=== PATIENT | male | born 1980 | race Caucasian/White ===

== ENCOUNTER 2016-08-22 11:01 | Inpatient (IN) | payer OTHER ==
[~2016-08-22] VITALS: Ht 182.9 cm; Wt 83.9 kg
--- NOTE | 2016-08-22 11:28 | NUR ---
TRIAGE: PT SENT TO ER BY [facility] FOR EVAL OF URI S/S X 1 WK WITH R/A SATS REPORTED TO BE 92%. PT REPORTS PRODUCTIVE COUGH WITH GREENISH PHLEGM. HIGHEST TEMP REPORTED TO BE 104. AFEBRILE AT TRIAGE. R/A SATS 91% AT TRIAGE. STATES HE HAD XRAYS DONE AT [facility] WHICH REVEALED PNEUMONIA.
--- NOTE | 2016-08-22 11:28 | NUR ---
Informed waiting has been performed.
--- NOTE | 2016-08-22 11:36 | ED INFLUENZA/URI COMPLAINT ---
History of Present Illness General Chief Complaint: General Adult Stated Complaint: SENT BY [facility] FOR POSSIBLE PNA Source: patient, family, old records Exam Limitations: no limitations Vital Signs & Intake/Output Vital Signs & Intake/Output Vital Signs Date Time Temp Pulse Resp B/P Pulse O2 O2 Flow FiO2 Ox Delivery Rate 08/23 1103 93 Nasal 2.0L Cannula 08/23 0800 Nasal 2.0L Cannula 08/23 0727 97.3 78 20 132/86 91 Room Air 08/23 0000 Nasal 2.0L Cannula 08/22 2220 98.0 72 20 134/74 92 Nasal 2.0L Cannula 08/22 2203 Nasal 2.0L Cannula 08/22 1622 97.1 63 20 120/72 95 Nasal 4.0L Cannula 08/22 1600 95 Nasal 2.0L Cannula 08/22 1504 97.5 80 18 122/70 94 Nasal 2.0L Cannula 08/22 1330 99.8 78 18 104/58 93 Nasal 2.0L Cannula 08/22 1309 93 Nasal 2.0L Cannula 08/22 1257 97.1 74 20 104/70 92 Nasal 2.0L Cannula 08/22 1219 98 Nasal 2.0L Cannula 08/22 1155 88 ED Intake and Output 08/23 0000 08/22 1200 Intake Total 875 Output Total Balance 875 Intake, IV 675 Intake, Oral 200 Number 0 Bowel Movements Patient 185 lb 185 lb Weight Allergies Coded Allergies: NO KNOWN ALLERGIES (08/22/16) Reconcile Medications No Known Home Medications Triage Note: TRIAGE: PT SENT TO ER BY [facility] FOR EVAL OF URI S/S X 1 WK WITH R/A SATS REPORTED TO BE 92%. PT REPORTS PRODUCTIVE COUGH WITH GREENISH PHLEGM. HIGHEST TEMP REPORTED TO BE 104. AFEBRILE AT TRIAGE. R/A SATS 91% AT TRIAGE. STATES HE HAD XRAYS DONE AT [facility] WHICH REVEALED PNEUMONIA. Triage Nurses Notes Reviewed? yes Onset: Gradual Duration: week(s): (1), constant Timing: recent history Severity: moderate Severity Numbers: 6 Prior Episodes/Possible Cause: occassional episodes No Modifying Factors: none Associated Symptoms: muscle aches, nasal congestion, nasal drainage, shortness of breath HPI: This is a 36-year-old male active smoker with no known medical history presents emergency room sent in by an urgent care for evaluation after he is reported progressively worsening productive cough of yellow to green sputum rhinorrhea congestion for the past 1 week associated with fevers as high as 104.0 orally to the patient's family. His last dose of ibuprofen was earlier this morning. He denies recent travel or sick contacts no hemoptysis no chest pain. No abdominal pain nausea vomiting or diarrhea. Patient states that he can x-ray performed this morning that showed pneumonia and because his oxygen saturations were low they sent him here for further workup. He's not been on any antibiotics or taken any [id number] medications for the symptoms. (JASMIN JACOBS) Past History Travel History Traveled to [place] past 21 day No Medical History Any Pertinent Medical History? 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 No Sexual History Past Sexual History Unobtainable at this time (JASMIN JACOBS) Review of Systems Review of Systems Constitutional: Reports: see HPI. All Other Systems: Reviewed and Negative Comments Review of systems: See HPI, All other systems negative. Constitutional, no chills no fever, no malaise HEENT: no sore throat no congestion, no ear pain Cardiovascular: No chest pain , no palpitation , no orthopnea no ankle swelling Skin,no rashes, no change in skin Respiratory: dyspnea cough sputum no hemoptysis GI: No nausea no vomiting, no diarrhea, no bloating/constipation : No dysuria No hematuria, no frequency Muscle skeletal: No joint pain, no joint swelling, no back pain, no neck pain, Neurologic: No numbness no headache Psych: No stress Heme/endocrine: No bruising no bleeding Immunology: No lymphadenopathy, (JASMIN JACOBS) Physical Exam Physical Exam General Appearance: well developed/nourished, no apparent distress, alert Ears, Nose, Throat: moist mucous membrane, hearing grossly normal, nasal congestion Comments: Well-developed well-nourished person in no acute distress Head/Face: Atraumatic, no maxillary/frontal sinus tenderness, no facial swelling Eyes: PERRL, EOMI, no conjunctival injection. No nystagmus Ear:External auditory canal and Tympanic membranes clear, no erythema, no FB. Nose: atraumatic.Normal inspection Throat: Moist mucous membranes.Pharynx normal. No pharyngeal erythema/exudate seen. No stridor/drooling or assymetry. No swelling or edema. Neck: Supple, no lymphadenopathy, FROM Back: Nontender, no CVA tenderness. Full range of motion Cardiovascular: Regular rate and rhythms no murmurs rubs or gallops, normal JVP Respiratory: Chest nontender.There were no bony deformities, no asymmetry. No respiratory distress. Patient speaking in full complete sentences. Lung sounds are rhonchorous, intermittent wheezes bilaterally Abdomen: Soft, nontender nondistended Extremity: No edema, full range of motion of extremities Neuro: Alert oriented x3, motor sensory normal, There were no obvious focal neurologic abnormalities. Skin: No appreciable rash on exposed skin, skin is warm and dry. Psych: Mood and affect is normal, memory and judgment is normal. Core Measures Severe Sepsis Present: No Septic Shock Present: No (NONI VILLEDA,JASMIN) Progress Differential Diagnosis: influenza, otitis, pneumonia, pharyngitis, sinusitis, bronchitis, asthma, copd, pe Plan of Care: Orders Procedure Date/time Status INCENTIVE SPIROMETRY TRX (GEN) 08/23 09 Complete HEPATIC FUNCTION PANEL 08/23 06 Complete CBC WITHOUT DIFFERENTIAL 08/23 06 Complete BASIC ELECTROLYTES PLUS BUN&CR 08/23 599 Complete Regular Diet 08/22 D Active RT: Evaluation 08/22 2159 Active Precautions 08/22 1921 Complete CULTURE,URINE 08/22 1754 Active URINALYSIS 08/22 1754 Complete Vital Signs 08/22 165 Active Teach/Educate 08/22 165 Active Pain Treatment and Response 08/22 165 Active Nutritional Intake, Monitor 08/22 165 Active Isolation 08/22 1658 Active Intake & Output 08/22 165 Active Patient Care Conference 08/22 1658 Active Activity/Ambulation 08/22 1658 Active Pathway - chart 08/22 1558 Active LOWER RESPIRATORY CULTURE 08/22 1558 Active Pathway - chart 08/22 1557 Active House Staff 08/22 1557 Active Patient Data 08/22 1557 Active Code Status 08/22 1557 Active Patient Data 08/22 1347 Active Admit to inpatient 08/22 1338 Active Vital Signs 08/22 1338 Active Code Status 08/22 1338 Complete Intake & Output 08/22 1218 Active VIRAL CULTURE 08/22 1159 Active PHOSPHORUS 08/22 1152 Complete MAGNESIUM 08/22 1152 Complete Saline Lock 08/22 1141 Active RAPID VIRAL INFLUENZA A 08/22 1141 Complete BLOOD CULTURE 08/22 1141 Active COMPREHENSIVE METABOLIC PANEL 08/22 1141 Complete CBC WITHOUT DIFFERENTIAL 08/22 1141 Complete OXYGEN SETUP CHG 08/22 UNK Complete INCENTIVE SPIROMETRY TRX CHG 08/22 UNK Complete OXYGEN 08/22 UNK Complete OXYGEN TRANSPORT 08/22 UNK Complete TRC EVALUATION (GEN) 08/22 UNK Complete THERAPIST ORDERS 08/22 UNK Complete Lab Add-on Test 08/22 UNK Active VTE Mechanical Prophylaxis 08/22 UNK Active Current Medications Sig/Suzette Start time Last Medication Dose Stop Time Status Admin Methylprednisolone 40 MG Q12 08/23 2200 CAN (Solumedrol) Nicotine 14 MG DAILY 08/23 1000 AC (Nicotine Cq) Ibuprofen 600 MG Q6P PRN 08/22 1600 AC (Motrin) Oxycodone/ 1 TAB Q6P PRN 08/22 1600 AC Acetaminophen (Percocet) Oxycodone/ 2 TAB Q6P PRN 08/22 1600 AC Acetaminophen (Percocet) Laboratory Tests 08/23/16 0656: Anion Gap 8, Estimated GFR > 60, BUN/Creatinine Ratio 21.7, Total Bilirubin 0.5, Direct Bilirubin 0.3, AST 16 L, ALT 44, Alkaline Phosphatase 86, Total Protein 6.5, Albumin 3.6, CBC w Diff MAN DIFF ORDERED, RBC 4.97, MCV 89.9, MCH 30.4, RDW 13.3, MPV 7.3 L, Gran % 88.9 H, Lymphocytes % 6.4 L, Monocytes % 4.7, Eosinophils % 0, Basophils % 0 L, Absolute Granulocytes 12.0 H, Segmented Neutrophils 80 H, Band Neutrophils 8 H, Absolute Lymphocytes 0.9 L, Lymphocytes 6 L, Monocytes 6, Absolute Monocytes 0.6, Absolute Eosinophils 0, Absolute Basophils 0, Platelet Estimate ADEQUATE, Normocytic RBCs VERIFIED, Normochromic RBCs VERIFIED, PUBS MCHC 33.9 08/23/16 0645: Urine Color YEL, Urine Clarity CLEAR, Urine pH 7.0, Ur Specific [place] 1.010, Urine Protein NEG, Urine Ketones NEG, Urine Nitrite NEG, Urine Bilirubin NEG, Urine Urobilinogen 0.2, Ur Leukocyte Esterase NEG, Ur Microscopic EXAM NOT REQUIRED, Urine Hemoglobin NEG, Urine Glucose 500 H 08/22/16 1159: Virus Culture Pending 08/22/16 1152: Anion Gap 11, Estimated GFR > 60, BUN/Creatinine Ratio 15.0, Glucose 154 H, Calcium 9.7, Phosphorus 3.4, Magnesium 1.6, Total Bilirubin 1.0, AST 34, ALT 49, Alkaline Phosphatase 101, Total Protein 7.2, Albumin 4.1, Globulin 3.1, Albumin/ Globulin Ratio 1.3, CBC w Diff MAN DIFF ORDERED, RBC 5.20, MCV 90.1, MCH 30.3, RDW 12.7, MPV 7.2 L, Gran % 83.5 H, Lymphocytes % 7.7 L, Monocytes % 7.8, Eosinophils % 1.0, Basophils % 0 L, Absolute Granulocytes 11.5 H, Segmented Neutrophils 72, Band Neutrophils 6 H, Absolute Lymphocytes 1.1 L, Lymphocytes 15 L, Monocytes 7, Absolute Monocytes 1.1 H, Absolute Eosinophils 0.1, Absolute Basophils 0, Platelet Estimate ADEQUATE, Normocytic RBCs VERIFIED, Normochromic RBCs VERIFIED, PUBS MCHC 33.7 Microbiology 08/23 0645 URINE ROUT: Urine Culture - RECD 08/22 1558 LOWER RESP: Respiratory Culture - COLB 08/22 1558 LOWER RESP: Gram Stain - COLB 08/22 1210 BLOOD: Blood Culture - RECD 08/22 1200 NASOPHARYN: Influenza Virus A & B Rapid Smear - COMP INFLUENZA TYPE A 08/22 1200 BLOOD: Blood Culture - RECD Labs ordered old records reviewed including the patient's x-ray that he had performed earlier this morning. The radiologist report is as follows. No acute osseous or soft tissue abnormality. Cardiac and mediastinal contours are within normal limits. Normal memory vasculature. No pneumothorax. [place] infrahilar airspace opacity is present bilaterally involving the lung bases. Bilateral pulmonary hyperlucency is suggestive of underlying emphysema. Impression: Changes of by basilar atelectasis or pneumonia. Patient medicated with DuoNeb and Solu-Medrol IV Rocephin and azithro IV 08/22/2016 12:58:14 PM on repeat evaluation patient reports improvement in breathing after DuoNeb however noted to be wheezing bilaterally at this time oxygen saturations 91-92% on 2 L, 88% on room air discussed the patient at length all of his lab results given history premature discharge be medically harmful case was discussed with Dr. cat, pt agrees with plan case d/w dr reyes (JASMIN JACOBS) Initial ED EKG: none (JASMIN JACOBS) Departure Departure Time of Disposition: 1255 Disposition: STILL A PATIENT Condition: Stable Clinical Impression Primary Impression: Influenza A Secondary Impressions: Hypoxia, PNA (pneumonia) Referrals: RHONA HOBBS MD (PCP/Family) Departure Forms: Customer Survey General Discharge Information Prescriptions: Current Visit Scripts No Known Home Medications Admission Note Spoke With: JUDITH REYES MD Documentation of Exam: Documentation of any treatments & extenuating circumstances including Concerns Regarding Discharge (functional status, medication knowledge or non-compliance, living conditions, etc.) that warrant an admission rather than observation: Patient will require IV antibiotics and steroids breathing treatments when necessary, given patient is hypoxic and not at baseline premature discharge would BE medically harmful. (JASMIN JACOBS) PA/POUNCING MACHINE OPERATOR Co-Sign Statement Statement: ED Attending supervision documentation- [] I saw and evaluated the patient. I have also reviewed all the pertinent lab results and diagnostic results. I agree with the findings and the plan of care as documented in the PA's/POUNCING MACHINE OPERATOR's documentation. [X] I have reviewed the ED Record and agree with the PA's/POUNCING MACHINE OPERATOR's documentation. [] Additions or exceptions (if any) to the PAs/POUNCING MACHINE OPERATOR's note and plan are summarized below: [] (TIAGO BURNETT,ABDIAZIZ)
[2016-08-22 12:18] LABS: ABSOLUTE BASOPHIL COUNT 0 /CUMM (0.0-0.2); ABSOLUTE EOSINOPHIL COUNT 0.1 /CUMM (0.0-0.7); ABSOLUTE GRANULOCYTE CT 11.5 /CUMM (1.4-6.5); ABSOLUTE LYMPH COUNT 1.1 /CUMM (1.2-3.4); ABSOLUTE MONOCYTE COUNT 1.1 /CUMM (0.10-0.60); BASOPHIL % 0 % (0.0-2.0); GRANULOCYTE % 83.5 % (42.2-75.2); HEMATOCRIT 46.8 % (42-52); MEAN CORPUSCULAR HGB 30.3 PG (27.0-31.0); MEAN CORPUSCULAR HGB CONC 33.7 G/DL (33.0-37.0); MEAN CORPUSCULAR VOLUME 90.1 FL (80.0-94.0); MEAN PLATELET VOLUME 7.2 FL (7.4-10.4); PLATELET COUNT 191 /CUMM (130-400); RBC DISTRIBUTION WIDTH 12.7 % (11.5-14.5); WHITE BLOOD CELL COUNT 13.8 /CUMM (4.8-10.8)
--- NOTE | 2016-08-22 12:19 | NUR ---
PT RESTING IN STRETCHER, PT DOES NOT APPEAR IN DISTRESS. PT JUST RECIEIVED DUONEB AND STATES HE FEELS BETTER. SKIN WARM AND SLIGHTLY MOIST. PT DENIES PAIN.
--- NOTE | 2016-08-22 12:23 | NUR ---
PT IS ON PRECUATIONS FOR + FLU
--- NOTE | 2016-08-22 12:57 | NUR ---
PT O2 SAT STILL REMAINS AT 92% ON 2L. PT STATES HE FEELS SLIGHTLY BETTER AFTER FIRST TREATMENT. ABEL PETTY CALLED FOR SECOND TREATMENT.
--- NOTE | 2016-08-22 13:01 | NUR ---
RT AT BEDSIDE FOR ALBUTEROL NOW
--- NOTE | 2016-08-22 14:00 | NUR ---
HOUSE STAFF AT BEDSIDE NOW
--- NOTE | 2016-08-22 14:23 | NUR ---
PT DENIES COMPLAINTS
--- NOTE | 2016-08-22 14:31 | History & Physical ---
CRISS AUGUST 08/22/16 1431: General Information and HPI MD Statement: I have seen and personally examined OLGA PEARSON and documented this H&P. The patient is a 36 year old M who presented with a patient stated chief complaint of [productive cough, shortness of breath and fever]. Source of Information: patient Exam Limitations: no limitations History of Present Illness: Mr Pearson is a very pleasant 36-year-old Malay gentleman with a PMH of URTI and pneumonia last year who presents with complaints of productive cough and shortness of breath. Symptoms started last Sunday with a dry cough, became productive over the next 2 days with green sputum. He reports interval improvement over the weekend worsening in symptoms on Sunday with subjective fever, chills, chest tightness and exertional shortness of breath. Last night the chills persisted, recorded a temperature of 104. This morning he followed up at the [facility] where chest x-ray was performed with results as shown below. CXR: normal pulmonary vasculature, basilar infrahilar airspace opacity present bilaterally involving the lung bases. Bilateral pulmonary hyperlucency suggestive of underlying emphysema. ROS: He denies any sick contacts, sore throat, headache, confusion, blurry vision, nausea, changes in bowel/bladder habits, rashes. 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 EENTM: Reports: no symptoms. Cardiovascular: Reports: no symptoms. Respiratory: Reports: see HPI. GI: Reports: no symptoms. Genitourinary: Reports: no symptoms. Musculoskeletal: Reports: see HPI. Skin: Reports: no symptoms. Neurological/Psychological: Reports: no symptoms. Exam & Diagnostic Data Last 24 Hrs of Vital Signs/I&O Vital Signs Date Time Temp Pulse Resp B/P Pulse O2 O2 Flow FiO2 Ox Delivery Rate 08/22 1622 97.1 63 20 120/72 95 Nasal 4.0L Cannula 08/22 1600 95 Nasal 2.0L Cannula 08/22 1504 97.5 80 18 122/70 94 Nasal 2.0L Cannula 08/22 1330 99.8 78 18 104/58 93 Nasal 2.0L Cannula 08/22 1309 93 Nasal 2.0L Cannula 08/22 1257 97.1 74 20 104/70 92 Nasal 2.0L Cannula 08/22 1219 98 Nasal 2.0L Cannula 08/22 1155 88 08/22 1125 97.2 87 20 130/76 90 Room Air Intake & Output 08/22 1600 08/22 0800 08/22 0000 Intake Total 450 Output Total Balance 450 Intake, IV 450 Patient 185 lb Weight Physical Exam General Appearance Alert, Cooperative, No Acute Distress Skin No Significant Lesion HEENT EOMI, Mucous Membr. moist/pink, No evidence of pharyngeal erythema or exudate Neck No LAD Lymphatic Cervical nl Cardiovascular Regular Rate, Normal S1, Normal S2 Lungs Inspiratory and expiratory stridor/rhonchi. Scant expiratory wheezing present Abdomen Normal Bowel Sounds, Soft, No Tenderness Extremities No Edema Vascular Pulses Symmetrical Last 24 Hrs of Labs/Alejandro: Laboratory Tests 08/22/16 1159: Virus Culture Pending 08/22/16 1152: Anion Gap 11, Estimated GFR > 60, BUN/Creatinine Ratio 15.0, Glucose 154 H, Calcium 9.7, Phosphorus Pending, Magnesium Pending, Total Bilirubin 1.0, AST 34, ALT 49, Alkaline Phosphatase 101, Total Protein 7.2, Albumin 4.1, Globulin 3.1, Albumin/Globulin Ratio 1.3, CBC w Diff MAN DIFF ORDERED, RBC 5.20, MCV 90.1, MCH 30.3, RDW 12.7, MPV 7.2 L, Gran % 83.5 H, Lymphocytes % 7.7 L, Monocytes % 7.8, Eosinophils % 1.0, Basophils % 0 L, Absolute Granulocytes 11.5 H, Segmented Neutrophils 72, Band Neutrophils 6 H, Absolute Lymphocytes 1.1 L, Lymphocytes 15 L, Monocytes 7, Absolute Monocytes 1.1 H, Absolute Eosinophils 0.1, Absolute Basophils 0, Platelet Estimate ADEQUATE, Normocytic RBCs VERIFIED, Normochromic RBCs VERIFIED, PUBS MCHC 33.7 Microbiology 08/22 1754 URINE ROUT: Urine Culture - COLB 08/22 1558 LOWER RESP: Respiratory Culture - COLB 08/22 1558 LOWER RESP: Gram Stain - COLB 08/22 1210 BLOOD: Blood Culture - RECD 08/22 1200 NASOPHARYN: Influenza Virus A & B Rapid Smear - COMP INFLUENZA TYPE A 08/22 1200 BLOOD: Blood Culture - RECD Assessment/Plan Assessment: 36-year-old Malay gentleman with a PMH of URTI and pneumonia last year who presents with complaints of productive cough, shortness of breath with exertion, chills, fever with a temperature of 104. Chest x-ray performed at the [facility]: Normal pulmonary vasculature, basilar infrahilar airspace opacity present bilaterally involving the lung bases. Bilateral pulmonary hyperlucency suggestive of underlying emphysema. VS: BP 130/76, HR 87, RR 20, SPO2 90% on 2L, T 97.2 Pertinent labs: WBC 13.8, H&H 15.8/46.8, BUN/Cr CR 12/0.8, potassium 4.0 Rapid influenza: Positive for influenza A Problem list: 1. Influenza 2. Community acquired pneumonia 3. Acute respiratory failure with hypoxia Plan: * Admit to general medicine * Influenza: Oseltamivir 75 mg PO BID. NS 75 mL an hour. Advised patient to have family members monitor for symptoms of influenza * CAP: We'll continue ceftriaxone and azithromycin. Will obtain a chest CT to better assess lung parenchyma. Pulmonology consult in the a.m. incentive spirometry, titrate supplemental O2 as tolerated, TRCs * Solu-Medrol 40 mg IV Q8 on taper with clinical improvement * Follow sputum, blood cultures, strep/Legionella urine antigen * Tobacco cessation advised. Nicotine patch 14 mg daily * Regular diet * DVT prophylaxis: Lovenox 40 mg daily * Full code As Ranked By This Provider Problem List: 1. Influenza A 2. PNA (pneumonia) 3. Acute respiratory failure with hypoxia Core Measures/Miscellaneous Acute Coronary Syndrome ACS Diagnosis: No Cerebrovascular Accident CVA/TIA Diagnosis: No Congestive Heart Failure CHF Diagnosis: No Venous Thromboembolism VTE Risk Factors: Acute medical illness [facility] prophylaxis d/t: No contraindications No VTE Pharm Prophylaxis d/t: No contraindications VTE Diagnosis: No VTE Type: NONE VTE Confirmed by (Test): NONE Severe Sepsis Severe Sepsis Present: No Septic Shock Septic Shock Present: No Miscellaneous Documentation Attending Case Discussed With: JUDITH REYES MD Primary Care Physician: RHONA HOBBS MD Patient sees these Specialists NA Level of Patient Care: General Medicine Resident Review Statement Resident Statement: examined this patient, discussed with video editing internship, agreed with video editing internship, discussed with nursing, reviewed images JUDITH REYES MD 08/22/16 1527: Attending Review Statement Attending Statement Attending MD Statement: examined this patient, discuss w/resident/PA/DAIRY CATTLE FARM MANAGER, agreed w/resident/PA/DAIRY CATTLE FARM MANAGER, discussed with family, reviewed EMR data (avail), amended to note Attending Assessment/Plan: The patient is a 36 yo male who is a smoker with no significant past medical history who was referred to the [place] ED from an urgent care center where he had presented with fever (104 degrees), cough and dyspnea and was noted to be hypoxemic (88% PO). The CXR done at the center also suggested pneumonia (report with basilar infrahilar airspace opacity bilaterally at bases and hyperlucency suggestive of emphysema). Cough was productive of yellow sputum and was worsening over several days. His rapid flu test in ED was positive for influenza A. In the ED he was noted to be wheezing and received IV Medrol/albuterol aerosol along with IV Antibiotics (Ceftriaxone/Zithromax) and po Tamiflu. Physical Exam: VS: T 97.1, P 74k, R 20, BP 104/70, PO 92% on 2L HEENT: eyes- PERRLA, EOMI carol ann- dry mucosa w/o lesions Neck: no adenopathy Chest: diffuse bilateral wheeze and rhonchi that diminish slightly post deep breath and cough Cor: RRR, nl S1, S2 w/o murm Abd: BS+, soft, NT Ext: no edema, pulses 2+ Neuro: alert & oriented x 3, non-focal Labs/Tests- as above Impression/Plan #Acute Hypoxic Respiratory Failure- PO 88% at rest at urgent care. Multifactorial (see below). Plan: Admit to medical floor and treat underlying causes. Nasal oxygen and close respiratory monitoring. #Community Acquired Pneumonia/Influenza A- patient with yellow sputum and fever to 104. WBC 13.8 with left shift. Plan: Agree with IV Ceftriaxone/Zithromax & po Tamiflu. Obtain sputum culture. Mucinex [address] of chest/Pulmonary evaluation pending clinical course. #Acute Bronchospasm- ?asthma/emphysema. Patient is smoker, however no h/o pulmonary disease. Significant bronchospasm on exam. 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 Plan: Agree with IV Solumedrol/albuterol aerosol. Follow exam.
--- NOTE | 2016-08-22 15:00 | NUR ---
FOOD ARRIVED NOW
--- NOTE | 2016-08-22 15:12 | NUR ---
PT MEDICATED WITH TAMIFLU PER EMAR. ASSUMED CARE OF PT PER RN VALDO, PT RRESTING IN RM WITH RR, WILL CONTINUE TO MONITOR
--- NOTE | 2016-08-22 15:25 | Admission Certification ---
Admission Certification Certification Statement - As attending physician, I certify that at the time of - admission, based on clinical presentation, severity of - symptoms, need for further diagnostic testing and - therapeutic interventions, and risk of adverse outcomes - without in-hospital treatment, in my clinical assessment, - this patient requires an acute hospital stay for a minimum - of two nights or longer. I have also considered psychsocial - factors such as support system, advanced age, financial - issues, cognitive issues, and failed out-patient treatments, - past re-admission history, safety of patient, and lack of - compliance as applicable. Specific rationale supporting this admission is: The patient presents with acute hypoxic respiratory failure secondary to community acquired pneumonia, influenza A, and new onset asthma/airway spasm. Needs admission for oxygen support and close monitoring, IV Medrol/aerosol, IV antibiotics (Ceftriaxone/Zitrhomax).
--- NOTE | 2016-08-22 15:44 | NUR ---
REPORT CALLED, TRANSPORT BOOKED
[2016-08-22 16:22] VITALS: BP 120/72
--- NOTE | 2016-08-22 17:18 | NUR ---
LATE ENTRY: PT ARRIVED ON FLOOR AT 1615. REPORT RECD FROM JOSUE LYLE IN ED. PT A&OX3, 2LNC IN PLACE, VSS, AFEBRILE, NO DISTRESS, PAIN FREE. DROPLET PRECAUTIONS IN PLACE DUE TO + FLU. PT ORIENTED TO ROOM/FLOOR. CALL LIGHT WITHIN REACH. PRECAUTIONS IN PLACE. WILL CONTINUE TO MONITOR.
--- NOTE | 2016-08-22 20:01 | CT SCAN REPORT ---
EXAMINATION: CT CHEST WITHOUT CONTRAST CLINICAL INFORMATION: Fluid positive. Shortness of breath and fever. 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 COMPARISON: None. TECHNIQUE: Multidetector volumetric CT imaging of the chest was done. Axial MIP volume rendering provided. Sagittal and coronal reformatted images were obtained. DLP: 308 mGy-cm FINDINGS: SCHOOL AGE LEAD TEACHER: Insole Toe Snipping Machine Operator images of the chest demonstrates symmetric pulmonary expansion. LUNGS: Evaluation of the lung parenchyma demonstrates patchy groundglass opacities within the bilateral lungs, notably within the medial region of the right lower lobe as well as within the bilateral lung bases. There is tree in bud nodularity within the left upper lobe and lingula. Superimposed airspace opacities are identified within the bilateral lung bases. The central airways are patent, without endobronchial obstructing lesions. MEDIASTINUM: Normal heart size, without significant pericardial effusion. Normal three-vessel branching of the aortic arch. Normal caliber of the thoracic aorta and main pulmonary artery. Mildly prominent mediastinal lymph nodes, visualized measuring up to 7 mm in short axis dimension within the right paratracheal region. There is a prominent subcarinal lymph node measuring approximately 1.1 cm in AP diameter. There is limited evaluation for hilar adenopathy given lack of intravenous contrast. PLEURA: There is no pleural effusion. No pleural mass or thickening. AXILLA: No significant axillary adenopathy. UPPER ABDOMEN: No acute findings within the upper abdomen. OSSEOUS STRUCTURES: No acute osseous abnormality. Normal alignment of the imaged thoracic spine. No destructive osseous lesions. IMPRESSION: Diffuse groundglass opacities within the bilateral lungs, notably within the bilateral lower lobes as well as within the left upper lobe and lingula. There is also tree in bud nodularity within the left upper lobe and lingula as well as within the bilateral lung bases with superimposed patchy airspace opacities. These infiltrates appear predominantly peribronchial vascular in distribution. Primary diagnostic consideration is for a multifocal infectious or inflammatory process. A viral pneumonitis can also appear similarly. Recommend follow-up PA and lateral chest x-ray to ensure resolution.
[2016-08-22 22:20] VITALS: BP 134/74
[2016-08-23 07:27] VITALS: BP 132/86
--- NOTE | 2016-08-23 07:27 | PN- Housestaff ---
KADEEM BURNETT,[facility] 08/23/16 0727: Subjective Follow-up For: Influenza Community acquired pneumonia Subjective: Patient was seen and examined this morning, he feels much better, denied fever or chills. He endoursed SOB on 2 L O2, cough with minimal green sputum. He denied chest pain, abdominal pain, nusea or vomiting. No BM yet. no symptoms with urination. patient continues to have IVF runs at 75cc/h. Vital signs are stable, afibrile. No overnight events. Review of Systems Constitutional: Reports: see HPI. Objective Last 24 Hrs of Vital Signs/I&O Vital Signs Date Time Temp Pulse Resp B/P Pulse O2 O2 Flow FiO2 Ox Delivery Rate 08/24 799 Nasal 2.0L Cannula 08/23 07 97.3 78 20 132/86 91 Room Air 08/23 0000 Nasal 2.0L Cannula 08/22 2220 98.0 72 20 134/74 92 Nasal 2.0L Cannula 08/22 2203 Nasal 2.0L Cannula 08/22 1622 97.1 63 20 120/72 95 Nasal 4.0L Cannula 08/22 1600 95 Nasal 2.0L Cannula 08/22 1504 97.5 80 18 122/70 94 Nasal 2.0L Cannula 08/22 1330 99.8 78 18 104/58 93 Nasal 2.0L Cannula 08/22 1309 93 Nasal 2.0L Cannula 08/22 1257 97.1 74 20 104/70 92 Nasal 2.0L Cannula 08/22 1219 98 Nasal 2.0L Cannula 08/22 1155 88 08/22 1125 97.2 87 20 130/76 90 Room Air Intake & Output 08/23 1600 08/23 0800 08/23 0000 Intake Total 800 425 Output Total 400 Balance 400 425 Intake, IV 600 225 Intake, Oral 200 200 Number 0 0 Bowel Movements Output, Urine 400 Patient 83.915 kg Weight Physical Exam General Appearance: Alert, Oriented X3, Cooperative, No Acute Distress Skin: No Rashes, No Breakdown, No Significant Lesion, scratch lim over dorsal surface of left foot HEENT: Atraumatic, PERRLA, EOMI, Mucous Membr. moist/pink Neck: Supple, No JVD Cardiovascular: Regular Rate, Normal S1, Normal S2, No Murmurs Lungs: Clear to Auscultation, Normal Air Movement Abdomen: Normal Bowel Sounds, Soft, No Tenderness Neurological: Normal Speech, Strength at 5/5 X4 Ext, Normal Tone, Sensation Intact, Cranial Nerves 3-12 NL, Reflexes 2+ Extremities: No Clubbing, No Cyanosis, No Edema, Normal Pulses Assessment/Plan Assessment: Assessment: 36-year-old Maltese gentleman with a PMH of URTI and pneumonia last year who presents with complaints of productive cough, shortness of breath with exertion, chills, fever with a temperature of 104. Chest x-ray performed at the [facility]: Normal pulmonary vasculature, basilar infrahilar airspace opacity present bilaterally involving the lung bases. Bilateral pulmonary hyperlucency suggestive of underlying emphysema. Rapid influenza: Positive for influenza A CT chest on 08/22/16 IMPRESSION: Diffuse groundglass opacities within the bilateral lungs, notably within the bilateral lower lobes as well as within the left upper lobe and lingula. There is also tree in bud nodularity within the left upper lobe and lingula as well as within the bilateral lung bases with superimposed patchy airspace opacities. These infiltrates appear predominantly peribronchial vascular in distribution. Primary diagnostic consideration is for a multifocal infectious or inflammatory process. A viral pneumonitis can also appear similarly. Recommend follow-up PA and lateral chest x-ray to ensure resolution. Problem list: 1. Influenza 2. Community acquired pneumonia 3. Acute respiratory failure with hypoxia Plan: #Influenza and community-acquired pneumonia -Continue oseltamivir 75 mg PO BID Day #2 -Continue IV ceftriaxone and azithromycin Day #2 -Discontinue steroids as it may aggravate flu symptoms per Og Adam MD -Start fluticasone inhaler twice a day -Continue hydration IV fluids 75 mL, we DC IV fluid tomorrow morning -Follow sputum (pending receipt) and blood cultures -Pulmonary consultation was obtained, thanks recommendation -Tobacco cessation advised. Nicotine patch 14 mg daily -Regular diet -DVT prophylaxis: Lovenox 40 mg daily -Full code -Consultation pulmonology Problem List: 1. Influenza A 2. PNA (pneumonia) Pain Ratin Pain Location: None Pain Goal: Pain 4 or less Pain Plan: Mild pain pathway Tomorrow's Labs & Rationales: None JUDITH REYES MD 08/23/16 1720: Attending MD Review Statement Attending Statement Attending MD Statement: examined this patient, discuss w/resident/PA/SHINGLE GRADER, agreed w/resident/PA/SHINGLE GRADER, discussed with family, reviewed EMR data (avail), discussed with nursing, reviewed images, amended to note Attending Assessment/Plan: The patient was seen and discussed with house staff. Agree with the plan of care as outlined. Appreciate pulmonary input.
[2016-08-23 08:17] LABS: ABSOLUTE BASOPHIL COUNT 0 /CUMM (0.0-0.2); ABSOLUTE EOSINOPHIL COUNT 0 /CUMM (0.0-0.7); ABSOLUTE LYMPH COUNT 0.9 /CUMM (1.2-3.4); ABSOLUTE MONOCYTE COUNT 0.6 /CUMM (0.10-0.60); BASOPHIL % 0 % (0.0-2.0); EOSINOPHIL % 0 % (0-5); GRANULOCYTE % 88.9 % (42.2-75.2); HEMATOCRIT 44.6 % (42-52); MEAN CORPUSCULAR HGB 30.4 PG (27.0-31.0); MEAN CORPUSCULAR HGB CONC 33.9 G/DL (33.0-37.0); MEAN CORPUSCULAR VOLUME 89.9 FL (80.0-94.0); MEAN PLATELET VOLUME 7.3 FL (7.4-10.4); PLATELET COUNT 186 /CUMM (130-400); RBC DISTRIBUTION WIDTH 13.3 % (11.5-14.5); RED BLOOD CELL CT 4.97 /CUMM (4.70-6.10); WHITE BLOOD CELL COUNT 13.6 /CUMM (4.8-10.8)
[2016-08-23 14:46] VITALS: BP 120/82
--- NOTE | 2016-08-23 18:52 | Cons- Pulmonary ---
General Information and HPI Consulting Request Date of Consult: 08/23/16 Requested By: med team History of Present Illness: Mr Duggan is a very pleasant 36-year-old [place] gentleman with a PMH of URTI and pneumonia last year who presents with complaints of productive cough and shortness of breath. Symptoms started last Sunday with a dry cough, became productive over the next 2 days with green sputum. He reports interval improvement over the weekend worsening in symptoms on Sunday with subjective fever, chills, chest tightness and exertional shortness of breath. Last night the chills persisted, recorded a temperature of 104. This morning he followed up at the [facility] where chest x-ray was performed with results as shown below. CXR: normal pulmonary vasculature, basilar infrahilar airspace opacity present bilaterally involving the lung bases. Bilateral pulmonary hyperlucency suggestive of underlying emphysema. ROS: He denies any sick contacts, sore throat, headache, confusion, blurry vision, nausea, changes in bowel/bladder habits, rashes. 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 Constitutional: Reports: see HPI. EENTM: Reports: no symptoms. Cardiovascular: Reports: no symptoms. Respiratory: Reports: see HPI. GI: Reports: no symptoms. Genitourinary: Reports: no symptoms. Musculoskeletal: Reports: see HPI. Skin: Reports: no symptoms. Neurological/Psychological: Reports: no symptoms. Allergies/Medications Allergies: Coded Allergies: NO KNOWN ALLERGIES (08/22/16) Home Med List: No Known Home Medications Review of Systems Review of Systems Constitutional: Reports: see HPI. Past History Travel History Traveled to [place] past 21 day No Medical History Blood Transfusion Hx: No Neurological: NONE EENT: NONE Cardiovascular: NONE Respiratory: pneumonia Gastrointestinal: NONE Hepatic: NONE Renal: NONE Musculoskeletal: NONE Psychiatric: NONE Endocrine: NONE Blood Disorders: NONE Cancer(s): NONE PAYROLL MASTER/Reproductive: NONE Surgical History Surgical History: 1 Psychosocial History Smoking Status: Unknown If Ever Smoked ETOH Use: occasional use Illicit Drug Use: denies illicit drug use Exam & Diagnostic Data Last 24 Hrs of Vital Signs/I&O Vital Signs Date Time Temp Pulse Resp B/P Pulse O2 O2 Flow FiO2 Ox Delivery Rate 08/23 1446 97.9 68 20 120/82 94 Nasal 2.0L Cannula 08/23 1103 93 Nasal 2.0L Cannula 08/24 799 Nasal 2.0L Cannula 08/23 07 97.3 78 20 132/86 91 Room Air 08/23 0000 Nasal 2.0L Cannula 08/22 2220 98.0 72 20 134/74 92 Nasal 2.0L Cannula 08/22 2203 Nasal 2.0L Cannula Intake & Output 08/23 1600 08/23 0808/23 0000 Intake Total 1160 800 425 Output Total 400 Balance 1160 400 425 Intake, IV 600 600 225 Intake, Oral 560 200 200 Number 1 0 0 Bowel Movements Output, Urine 400 Patient 185 lb Weight Last 48 Hrs of Labs/Alejandro: Laboratory Tests 08/23/16 0656: Anion Gap 8, Estimated GFR > 60, BUN/Creatinine Ratio 21.7, Total Bilirubin 0.5, Direct Bilirubin 0.3, AST 16 L, ALT 44, Alkaline Phosphatase 86, Total Protein 6.5, Albumin 3.6, CBC w Diff MAN DIFF ORDERED, RBC 4.97, MCV 89.9, MCH 30.4, RDW 13.3, MPV 7.3 L, Gran % 88.9 H, Lymphocytes % 6.4 L, Monocytes % 4.7, Eosinophils % 0, Basophils % 0 L, Absolute Granulocytes 12.0 H, Segmented Neutrophils 80 H, Band Neutrophils 8 H, Absolute Lymphocytes 0.9 L, Lymphocytes 6 L, Monocytes 6, Absolute Monocytes 0.6, Absolute Eosinophils 0, Absolute Basophils 0, Platelet Estimate ADEQUATE, Normocytic RBCs VERIFIED, Normochromic RBCs VERIFIED, PUBS MCHC 33.9 08/23/16 0645: Urine Color YEL, Urine Clarity CLEAR, Urine pH 7.0, Ur Specific [place] 1.010, Urine Protein NEG, Urine Ketones NEG, Urine Nitrite NEG, Urine Bilirubin NEG, Urine Urobilinogen 0.2, Ur Leukocyte Esterase NEG, Ur Microscopic EXAM NOT REQUIRED, Urine Hemoglobin NEG, Urine Glucose 500 H 08/22/16 1159: Virus Culture Pending 08/22/16 1152: Anion Gap 11, Estimated GFR > 60, BUN/Creatinine Ratio 15.0, Glucose 154 H, Calcium 9.7, Phosphorus 3.4, Magnesium 1.6, Total Bilirubin 1.0, AST 34, ALT 49, Alkaline Phosphatase 101, Total Protein 7.2, Albumin 4.1, Globulin 3.1, Albumin/ Globulin Ratio 1.3, CBC w Diff MAN DIFF ORDERED, RBC 5.20, MCV 90.1, MCH 30.3, RDW 12.7, MPV 7.2 L, Gran % 83.5 H, Lymphocytes % 7.7 L, Monocytes % 7.8, Eosinophils % 1.0, Basophils % 0 L, Absolute Granulocytes 11.5 H, Segmented Neutrophils 72, Band Neutrophils 6 H, Absolute Lymphocytes 1.1 L, Lymphocytes 15 L, Monocytes 7, Absolute Monocytes 1.1 H, Absolute Eosinophils 0.1, Absolute Basophils 0, Platelet Estimate ADEQUATE, Normocytic RBCs VERIFIED, Normochromic RBCs VERIFIED, PUBS MCHC 33.7, HIV 1&2 Ab Western Blot NONREACTIVE Microbiology 08/22 1200 NASOPHARYN: Influenza Virus A & B Rapid Smear - COMP INFLUENZA TYPE A Assessment/Plan Impression/Plan: CT chest IMPRESSION: Diffuse groundglass opacities within the bilateral lungs, notably within the bilateral lower lobes as well as within the left upper lobe and lingula. There is also tree in bud nodularity within the left upper lobe and lingula as well as within the bilateral lung bases with superimposed patchy airspace opacities. These infiltrates appear predominantly peribronchial vascular in distribution. Primary diagnostic consideration is for a multifocal infectious or inflammatory process. A viral pneumonitis can also appear similarly. Recommend follow-up PA and lateral chest x-ray to ensure resolution. Physical Exam General Appearance Alert, Cooperative, No Acute Distress Skin No Significant Lesion HEENT EOMI, Mucous Membr. moist/pink, No evidence of pharyngeal erythema or exudate Neck No LAD Lymphatic Cervical nl Cardiovascular Regular Rate, Normal S1, Normal S2 Lungs Inspiratory and expiratory stridor/rhonchi. 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 However subsequently in the past 3 days she had developed abrupt onset of high fever chills body aches and shortness of breath. 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 Ongoing hypoxemia related to influenza pneumonitis Bandemia noted upon his admission blood work most likely related to his viral infection no clinical evidence of heart suggestive of acute bacterial infection. RECOMMENDATION Continue Tamiflu DC iv steroids Flovent 220 bid 2 puff SPutum culture COnt other abx for now and change to po Bactrim and azithro in am Increase activity Please order HIV and IgG quantitative levels Pt advised to use a mask while working and would need ventilation adequately Consult Acknowledgment - Thank you for your consult request.
[2016-08-23 21:51] VITALS: BP 145/88
[2016-08-24] MEDS ORDERED: FLOVENT HFA12 GM INH ×2 (06:14→18:27)
--- NOTE | 2016-08-24 06:22 | Patient Discharge Instructions ---
Discharge Instructions General Discharge Information You were seen/treated for: Influenza Pneumonia Low oxygen levels Watch for these problems: Fevers, chills, worsening shortness of breath, chest pain, blood in sputum Special Instructions: Please take all medications as directed Please follow-up with your PCP within 1-2 weeks after discharge. These call the retort or condenser press operator office in the next week to set up a follow-up appointment. Please have blood work done in one week and sent to your PCP. Please ensure to work in a well ventilated environment or use a breathing mask to help prevent inhalation of toxic fumes Diet Continue normal diet: Yes Activity Full Activity/No Limits: Yes Acute Coronary Syndrome Inclusion Criteria At DC or during hospital stay patient has or had the following: ACS DIAGNOSIS No Discharge Core Measures Meds if any: Prescribed or Continued at Discharge Meds if any: NOT Prescribed or Continued at Discharge Congestive Heart Failure Inclusion Criteria At DC or during hospital stay patient has or had the following: CHF DIAGNOSIS No Discharge Core Measures Meds if any: Prescribed or Continued at Discharge Meds if any: NOT Prescribed or Continued at Discharge Cerebrovascular accident Inclusion Criteria At DC or during hospital stay patient has or had the following: CVA/TIA Diagnosis No Discharge Core Measures Meds if any: Prescribed or Continued at Discharge Meds if any: NOT Prescribed or Continued at Discharge Venous thromboembolism Inclusion Criteria VTE Diagnosis No VTE Type NONE VTE Confirmed by (Test) NONE Discharge Core Measures - Per Current guidelines, there needs to be overlap - treatment for the first 5 days of Warfarin therapy. - If discharged on Warfarin prior to 5 days of - overlap therapy, the patient will need to be - assessed for post discharge needs including - *Post discharge parental anticoagulation - *Warfarin and/or parental anticoagulation education - *Follow up date to check INR post discharge At least 5 days overlap therapy as Inpatient No Meds if any: Prescribed or Continued at Discharge Note: Overlap Therapy is Warfarin and Anticoagulant Meds if any: NOT Prescribed or Continued at Discharge
--- NOTE | 2016-08-24 07:11 | PN- Housestaff ---
KADEEM BURNETT,[facility] 08/24/16 0711: Subjective Follow-up For: Influenza Community acquired pneumonia Subjective: Patient was seen and examined this morning, vital signs are stable, remained afebrile, no overnight events reported by the nurse or the patient. Patient reported improvement of shortness of breath, he saturated 95% on 1 L nasal cannula, 97% on room air. He doesn't complain of cough today, no fever or chills. He does report abdominal colicky pain thats 2-3/10 that started psychiatric nursing assistant, he had one bowel movement of diarrhea with no mucus or blood, abdominal pain improved afterwards. Patient denied any nausea or vomiting, no dysuria. Review of Systems Constitutional: Reports: see HPI. Objective Last 24 Hrs of Vital Signs/I&O Vital Signs Date Time Temp Pulse Resp B/P Pulse O2 O2 Flow FiO2 Ox Delivery Rate 08/24 1030 92 Room Air 08/24 1015 97 Room Air 08/24 0814 95 Nasal 1.0L Cannula 08/24 0800 97 Room Air 08/24 0716 97.1 60 18 124/74 97 Nasal 1.0L Cannula 08/24 0000 Nasal 2.0L Cannula 08/23 2151 98.1 62 20 145/88 95 Nasal 1.0L Cannula 08/23 1950 97 Nasal 2.0L Cannula 08/23 1600 94 Nasal 2.0L Cannula 08/23 1446 97.9 68 20 120/82 94 Nasal 2.0L Cannula Intake & Output 08/24 1600 08/24 0800 08/24 0000 Intake Total 600 1400 Output Total Balance 600 1400 Intake, IV 600 600 Intake, Oral 800 Physical Exam General Appearance: Alert, Oriented X3, Cooperative, No Acute Distress Skin: No Rashes, No Breakdown, No Significant Lesion HEENT: Atraumatic, PERRLA, EOMI, Mucous Membr. moist/pink Neck: Supple Cardiovascular: Regular Rate, Normal S1, Normal S2, No Murmurs Lungs: left side fine expiratory wheeze Bilateral basilar crackles Abdomen: Normal Bowel Sounds, Soft, No Tenderness Neurological: Normal Gait, Normal Speech, Strength at 5/5 X4 Ext, Normal Tone, Sensation Intact, Cranial Nerves 3-12 NL, Reflexes 2+ Extremities: No Clubbing, No Cyanosis, No Edema, Normal Pulses Assessment/Plan Assessment: Assessment: 36-year-old [place] gentleman with a PMH of URTI and pneumonia last year who presents with complaints of productive cough, shortness of breath with exertion, chills, fever with a temperature of 104. Chest x-ray performed at the [facility]: Normal pulmonary vasculature, basilar infrahilar airspace opacity present bilaterally involving the lung bases. Bilateral pulmonary hyperlucency suggestive of underlying emphysema. Rapid influenza: Positive for influenza A CT chest on 08/22/16 IMPRESSION: Diffuse groundglass opacities within the bilateral lungs, notably within the bilateral lower lobes as well as within the left upper lobe and lingula. There is also tree in bud nodularity within the left upper lobe and lingula as well as within the bilateral lung bases with superimposed patchy airspace opacities. These infiltrates appear predominantly peribronchial vascular in distribution. Primary diagnostic consideration is for a multifocal infectious or inflammatory process. A viral pneumonitis can also appear similarly. Recommend follow-up PA and lateral chest x-ray to ensure resolution. Problem list: 1. Influenza 2. Community acquired pneumonia 3. Acute respiratory failure with hypoxia Plan: #Influenza and community-acquired pneumonia -Continue oseltamivir 75 mg PO BID Day #3 -Discontinue IV ceftriaxone and azithromycin -Start Bactrim by mouth twice a day and azithromycin by mouth 250 mg daily Day#3 -Per Dr. Adam, discontinue azithromycin after today, and continue Bactrim for total antibiotic of 7 days -Discontinue steroids as it may aggravate flu symptoms per Og Adam MD -Continue fluticasone inhaler twice a day -Start albuterol inhaler in a state of nebulizer, inhaler administration education -Discontinue hydration IV fluids 75 mL -Follow sputum (pending receipt) and blood cultures negative so far -Viral culture negative -HIV negative -IgG quantitative level pending -Pulmonary consultation was obtained, thanks recommendation -Tobacco cessation advised. Nicotine patch 14 mg daily -Regular diet -DVT prophylaxis: Lovenox 40 mg daily -Full code -Consultation pulmonology Problem List: 1. Influenza A 2. PNA (pneumonia) Pain Ratin Pain Location: Abdominal pain Pain Goal: Pain 4 or less Pain Plan: Mild pain pathway Tomorrow's Labs & Rationales: IgG Quantitative level JUDITH REYES MD 08/24/16 2158: Attending MD Review Statement Attending Statement Attending MD Statement: examined this patient, discuss w/resident/PA/VIDEO PRODUCTION ASSISTANT, agreed w/resident/PA/VIDEO PRODUCTION ASSISTANT, discussed with family, reviewed EMR data (avail), discussed with nursing, reviewed images, amended to note Attending Assessment/Plan: The patient was seen and discussed with house staff. Agree with the plan of care as outlined. Appreciate pulmonary input.
[2016-08-24 07:16] VITALS: BP 124/74
[2016-08-24] MEDS ORDERED: AZITHROMYCIN500 M3 PO (07:37)
--- NOTE | 2016-08-24 09:43 | PN- Pulmonary ---
Subjective HPI/Critical Care Issues: Doing better afebrile vss On room air Objective Current Medications: Current Medications Sig/Suzette Start time Last Medication Dose Route Stop Time Status Admin Albuterol Sulfate 3 ML DAILY NEEDED PRN 08/22 2230 AC 08/23 INH 1950 Azithromycin 250 MG DAILY 08/25 1000 AC PO Azithromycin 500 MG ONCE ONE 08/24 0015 DC 08/24 PO 08/24 0016 0247 Azithromycin 500 MG DAILY 08/23 1000 DC 08/23 Dextrose/Water 250 ML IV 1045 Ceftriaxone Sodium 1,000 MG DAILY 08/23 1000 DC 08/23 IV 1044 Enoxaparin Sodium 40 MG DAILY 08/23 1000 AC 08/23 SC 1045 Fluticasone 2 PUF BID 08/23 1200 AC 08/23 Propionate INH 2133 Guaifenesin 600 MG Q12 08/22 2200 AC 08/23 PO 2132 Ibuprofen 600 MG Q6P PRN 08/22 1600 AC PO Methylprednisolone 40 MG Q12 08/23 2200 CAN IV Nicotine 14 MG DAILY 08/23 1000 AC TOP Oseltamivir Phosphate 75 MG BID 08/22 2200 AC 08/23 PO 08/26 2159 2132 Oxycodone/ 1 TAB Q6P PRN 08/22 1600 AC Acetaminophen PO Oxycodone/ 2 TAB Q6P PRN 08/22 1600 AC Acetaminophen PO Patient Medication 1 ED .STK-MED ONE 08/23 1345 DC Teaching ED 08/23 1346 Sodium Chloride 1,000 ML Q13H 08/23 1745 DC 08/23 IV 2134 Sodium Chloride 1,000 ML Q13H 08/22 1800 DC 08/23 IV 0637 Trimethoprim/ 1 TAB BID 08/25 1000 DC Sulfamethoxazole PO Trimethoprim/ 1 TAB BID 08/24 1000 AC Sulfamethoxazole PO Vital Signs & I&O Last 24 Hrs of Vitals and I&O: Vital Signs Date Time Temp Pulse Resp B/P Pulse O2 O2 Flow FiO2 Ox Delivery Rate 08/24 0814 95 Nasal 1.0L Cannula 08/24 0716 97.1 60 18 124/74 97 Nasal 1.0L Cannula 08/24 0000 Nasal 2.0L Cannula 08/23 2151 98.1 62 20 145/88 95 Nasal 1.0L Cannula 08/23 1950 97 Nasal 2.0L Cannula 08/23 1600 94 Nasal 2.0L Cannula 03/08 1446 97.9 68 20 120/82 94 Nasal 2.0L Cannula 08/23 1103 93 Nasal 2.0L Cannula Intake & Output 08/24 1600 08/24 0800 08/24 0000 Intake Total 600 1400 Output Total Balance 600 1400 Intake, IV 600 600 Intake, Oral 800 Impression/Plan Impression/Plan Impression/Plan: CT chest IMPRESSION: Diffuse groundglass opacities within the bilateral lungs, notably within the bilateral lower lobes as well as within the left upper lobe and lingula. There is also tree in bud nodularity within the left upper lobe and lingula as well as within the bilateral lung bases with superimposed patchy airspace opacities. These infiltrates appear predominantly peribronchial vascular in distribution. Primary diagnostic consideration is for a multifocal infectious or inflammatory process. A viral pneumonitis can also appear similarly. Recommend follow-up PA and lateral chest x-ray to ensure resolution. Physical Exam General Appearance Alert, Cooperative, No Acute Distress Skin No Significant Lesion HEENT EOMI, Mucous Membr. moist/pink, No evidence of pharyngeal erythema or exudate Neck No LAD Lymphatic Cervical nl Cardiovascular Regular Rate, Normal S1, Normal S2 Lungs Inspiratory and expiratory stridor/rhonchi. 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 However subsequently in the past 3 days she had developed abrupt onset of high fever chills body aches and shortness of breath. 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 Ongoing hypoxemia related to influenza pneumonitis Bandemia noted upon his admission blood work most likely related to his viral infection no clinical evidence of heart suggestive of acute bacterial infection. HIV neg RECOMMENDATION Continue Tamiflu Flovent 220 bid 2 puff DC on bactrim ds bid for total of seven days and can dc azithro after today IgG quantitative levels Pt advised to use a mask while working and would need ventilation adequately Smoking cessation counselling done Ok to dc soon Pt to follow with me as out pt
[2016-08-24 14:29] VITALS: BP 114/80
[2016-08-24] MEDS ORDERED: SPACE CHAMBER1 EACH PO ×2 (14:49→18:27)
--- NOTE | 2016-08-24 15:00 | Discharge Summary ---
Visit Information Visit Dates Admission Date: 08/22/16 Discharge Date: 08/24/16 Hospital Course Course Attending Physician: JUDITH REYES MD Primary Care Physician: ANJEL BURNETT,RHONA Baca Hospital Course: The patient is a 36 year old male with no significant past medical history who presented on 08/22/16 to ED with chief complain of productive cough and shortness of breath . Patient reported that his symptoms started a week ago when he started to have dry cough that became productive over time and exertional shortness of breath associated with chest tightness, fever and chills. The patient went to walk-in clinic on day of admission and had chest x-ray that revealed normal pulmonary vasculature, basilar infrahilar airspace opacity present bilaterally involving the lung bases. Bilateral pulmonary hyperlucency suggestive of underlying emphysema. ROS: He dened any sick contacts, sore throat, headache, confusion, blurry vision , nausea, changes in bowel/bladder habits, rashes. 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 On admission VS: BP 130/76, HR 87, RR 20, SPO2 90% on 2L, T 97.2 Physical Exam: HEENT: eyes- PERRLA, EOMI carol ann- dry mucosa w/o lesions Neck: no adenopathy Chest: diffuse bilateral wheeze and rhonchi that diminish slightly post deep breath and cough Cor: RRR, nl S1, S2 w/o murm Abd: BS+, soft, NT Ext: no edema, pulses 2+ Neuro: alert & oriented x 3, non-focal Pertinent labs: WBC 13.8, H&H 15.8/46.8, BUN/Cr CR 12/0.8, potassium 4.0 Rapid influenza: Positive for influenza A [facility] x-[facility] at [facility]: Normal pulmonary vasculature, basilar infrahilar airspace opacity present bilaterally involving the lung bases. Bilateral pulmonary hyperlucency suggestive of underlying emphysema. CT chest on 08/22/16 IMPRESSION: Diffuse groundglass opacities within the bilateral lungs, notably within the bilateral lower lobes as well as within the left upper lobe and lingula. There is also tree in bud nodularity within the left upper lobe and lingula as well as within the bilateral lung bases with superimposed patchy airspace opacities. These infiltrates appear predominantly peribronchial vascular in distribution. Primary diagnostic consideration is for a multifocal infectious or inflammatory process. A viral pneumonitis can also appear similarly. Recommend follow-up PA and lateral chest x-ray to ensure resolution. Assessment: 36-year-old [place] gentleman with a PMH of URTI and pneumonia last year who presented with complaints of productive cough, shortness of breath with exertion , chills, fever with a temperature of 104. Problem list: 1. Influenza 2. Community acquired pneumonia 3. Acute respiratory failure with hypoxia Plan: #Influenza and community-acquired pneumonia -Patient was started on Tamiflu (oseltamivir) 75 mg PO BID to finish course of 5 days -He was started initially on IV ceftriaxone and azithromycin that was switched later to Bactrim by mouth twice a day to finish course of total antibiotic 7 days and azithromycin by mouth 250 mg daily of total azithromycin 5 days -Discontinue steroids as it may aggravate flu symptoms per Ira Adam MD -Fluticasone inhaler twice a day -Albuterol nebulizer, inhaler on discharge and inhaler administration education -Follow blood cultures and urine culture negative so far, sputum culture was unobtainable -Viral culture negative -HIV negative -IgG quantitative level pending -Tobacco cessation advised. Nicotine patch 14 mg daily -Pulmonary consultation was obtained, thanks recommendation -Patient will follow up with Ira Adam MD upon discharge -Patient was educated to avoid toxic fumes and to use breathing mask -Regular diet -DVT prophylaxis: Lovenox 40 mg daily -Full code -Consultation pulmonology Allergies: Coded Allergies: NO KNOWN ALLERGIES (08/22/16) Disposition Summary Disposition Principal Diagnosis: Influenza Additional Diagnosis: Community acquired pneumonia Discharge Disposition: home or self care Discharge Instructions General Discharge Information Code Status: Full Code Patient's Diet: Regular diet Patient's Activity: As tolerated Follow-Up Instructions/Appts: -Please take all medications as directed -Please follow-up with your PCP within 1-2 weeks after discharge. These call the academic affairs assistant office in the next week to set up a follow-up appointment. -Please have blood work done in one week and sent to your PCP. -Please ensure to work in a well ventilated environment or use a breathing mask to help prevent inhalation of toxic fumes Medications at Discharge Discharge Medications: Start taking the following new medications: Azithromycin (Azithromycin) 250 MG TABLET 1 Tablet ORAL 2200 Qty = 4 No Refills Comments: last taken: 08/24/16 time: 3 am Fluticasone Propionate (Flovent Hfa) 220 MCG AER.W.ADAP 2 PUFF Inhale through mouth TWICE DAILY Qty = 1 No Refills Comments: Last taken: 08/24/16 time: 11 am Guaifenesin (Guaifenesin ER) 600 MG TAB.ER.12H 1 Tablet ORAL TWICE DAILY Qty = 6 No Refills Comments: Last taken: 08/24/16 time: 11 am Oseltamivir Phosphate (Tamiflu) 75 MG CAPSULE 1 Capsule ORAL TWICE DAILY Qty = 9 No Refills Comments: last taken: 08/24/16 time: 11 am Sulfamethoxazole/Trimethoprim (Sulfamethoxazole-Tmp Ds Tablet) 800 MG-160 MG TABLET 1 Tablet ORAL TWICE DAILY Qty = 9 No Refills Comments: last taken: 08/24/16 time: 11 am Albuterol Sulfate (Ventolin Hfa) 90 MCG HFA.AER.AD 2 Puff Inhale through mouth Every 4 hours as needed for Respiratory Qty = 1 No Refills Inhaler, Assist Devices (Space Chamber Plus) 1 EACH SPACER 1 [place] ORAL Every 4 hours as needed for Respiratory Qty = 1 No Refills Copies To: KEYONA BURNETT,IRA Kelley Attending MD Review Statement Documenting Attending: JUDITH REYES MD Other Findings: The patient was seen on the day of discharge and agree with the plan of care as outlined. OK to discharge today on po Tamiflu/Bactrim/Zithromax. Also given inhalers (Albuterol/Flovent). Follow-up with PCP and pulmonary. Eventual PFT's.
[2016-08-24] MEDS ORDERED: SULFAMETHOXAZO1 EAC1 PO ×2 (15:23→18:27)
[2016-08-24] MEDS ORDERED: AZITHROMYCIN250 M1 PO ×3 (15:24→18:37)
[2016-08-24] MEDS ORDERED: VENTOLIN HFA18 GM INH ×2 (15:24→18:27)
[2016-08-24] MEDS ORDERED: GUAIFENESIN ER600 MG PO ×2 (15:25→18:27)
[2016-08-24] MEDS ORDERED: TAMIFLU75 M1 PO ×2 (15:26→18:27)
== END 2016-08-24 16:10 | DRG 139 ==
LOC: ENRESERVTM → ENRESERVDT → ERH 11:01 → 2NB 13:38 → ERHI 13:38 → 2NB 16:06
PROVIDERS: Internal Medicine; Physician Assistant Medical; ADMIT Internal Medicine
DX: J10.00 Influenza due to other identified influenza virus with unspecified type of pneumonia (principal); J96.01 Acute respiratory failure with hypoxia; J43.9 Emphysema, unspecified; F17.210 Nicotine dependence, cigarettes, uncomplicated
CPT/HCPCS: 81003; 82436; 87040; 87070; 87086; 87389; 87804; 87804-59; 96365; 96375; J0456; J0696; J1650; J2920; J2930; J3490; J7060; Q2036